=== PATIENT | male | born 1945 | race Caucasian/White ===

== ENCOUNTER → 2017-03-02 | Outpatient (CLI) | payer MEDICARE, BC | END | disposition home or self-care (01) | LOC: PCVCCLINIC 10:00 | PROVIDERS: ATTEND Internal Medicine Cardiovascular Disease | DX: E78.5 Hyperlipidemia, unspecified (principal); I25.10 Atherosclerotic heart disease of native coronary artery without angina pectoris; J44.9 Chronic obstructive pulmonary disease, unspecified; I10 Essential (primary) hypertension; I73.9 Peripheral vascular disease, unspecified; I71.9 Aortic aneurysm of unspecified site, without rupture; Z72.0 Tobacco use | CPT/HCPCS: 80061; 93005; G0463 ==

== ENCOUNTER → 2017-07-02 | Outpatient (CLI) | payer MEDICARE, BC ==
--- NOTE | 2017-07-02 22:02 | PCVCIMAG ---
EXAM: AORTOILIAC DUPLEX INDICATION: Abdominal aortic aneurysm. FINDINGS: AORTA: Suprarenal aorta measures maximum diameter of 3.0 cm. There is not a fusiform infrarenal aortic aneurysm. The infrarenal aorta measures maximum diameter of 2.8 cm. No aortic stenosis. RIGHT COMMON ILIAC ARTERY: Maximum diameter is 1.0 cm. No significant stenosis. RIGHT EXTERNAL ILIAC ARTERY: No significant stenosis. LEFT COMMON ILIAC ARTERY: Maximum diameter is 1.0 cm. No significant stenosis. LEFT EXTERNAL ILIAC ARTERY: No significant stenosis. IMPRESSION: No abdominal aortic aneurysm. No aortoiliac stenosis seen. Note is made of ectasia of the infrarenal abdominal aorta measuring up to 2.8 cm. LOC:OFFICE
--- NOTE | 2017-07-02 22:06 | PCVCIMAG ---
EXAM: BILATERAL LOWER EXTREMITY ARTERIAL DUPLEX INDICATION: Peripheral Arterial Disease. Leg pain. Popliteal artery aneurysm. FINDINGS: Right Leg: Satisfactory arterial waveforms throughout the common/profunda/superficial femoral, popliteal, anterior tibial, peroneal, and posterior tibial arteries. No flow limiting stenosis seen. Previous stent in the right popliteal artery maintaining good patency. Left Leg: Satisfactory arterial waveforms at the common and profunda femoral as well as the superficial femoral and popliteal arteries. Occlusion throughout the mid and distal anterior tibial artery. The peroneal artery and posterior tibial arteries are patent. Incidental note is made of a fusiform aneurysm throughout the popliteal artery measuring maximum outer diameter 1.8 x 2.1 cm. Previous stent distal superficial femoral artery maintaining satisfactory patency. IMPRESSION: No flow limiting stenosis in the right lower extremity. Previous right popliteal artery stent maintaining good patency. 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 Previous distal left superficial femoral artery stent maintaining good patency. Occlusion of the mid/distal left anterior tibial artery. LOC:OFFICE
== END | disposition home or self-care (01) ==
LOC: PCVCIMAG 07:56
PROVIDERS: ATTEND Internal Medicine Cardiovascular Disease
DX: I73.9 Peripheral vascular disease, unspecified (principal); I77.1 Stricture of artery; I71.4 Abdominal aortic aneurysm, without rupture; I10 Essential (primary) hypertension; E78.00 Pure hypercholesterolemia, unspecified; I25.10 Atherosclerotic heart disease of native coronary artery without angina pectoris; Z95.828 Presence of other vascular implants and grafts
CPT/HCPCS: 93925; 93978

== ENCOUNTER → 2017-07-18 | Outpatient (CLI) | payer MEDICARE, BC ==
--- NOTE | 2017-07-19 12:58 | PCVCIMAG ---
APPROVED REPORT Exam: Nuclear Stress Test Indication: CAD Patient Location: Out-Patient Stress Nurse: Caprice Santacruz RN, LUCI Mortensen Tech:Rossy INOCENTE Gonzalez Ht: 5 ft 9 in Wt: 188 lbs BSA: 2.01 m2 BP: 182/91 mmHg BMI: 27.7 Rhythm: NSR Medical History Medical History: COPD, HTN, Hyperlipidemia, Smoking Medications: Amlodipine, ASA, Zetia, Quinapril, Metoprolol, Atorvastatin Allergies: No known drug allergies Previous Cardiac Procedures: PCI Pretest Chest Pain Characteristics: No chest pain Exercise History: Physically active Meds Held (24 hrs): Metoprolol NM EXAM: Myocardial Perfusion REST/STRESS Imaging Protocol: Rest Tc-99m/Stress Tc-99m 1 day Resting Data Rest SPECT myocardial perfusion imaging was performed in supine position 45 minutes following the intravenous injection of 10.3 mCi of Tc-99m Sestamibi. Time of rest injection: 929 Date: 07/18/2017 Administration Route: IV Administration Site: Right Hand Pharmacologic Stress Pharmacologic stress test was performed by injecting Regadenoson 0.4 mg IV push followed by the intravenous injection of 33 mCi of Tc-99m Sestamibi. Time of stress injection: 1129 Date: 07/18/2017 Administration Route: IV Administration Site: Right Hand Gated Stress SPECT was performed 45 minutes after stress injection. The images were gated to evaluate regional wall motion and calculate left ventricular ejection fraction. Study Quality Study: Good Study Data Post stress, the left ventricular ejection was 62%.. SSS: 2 SRS: 1 SDS: 1 TID = 1.03. Perfusion No evidence of stress induced ischemia. 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 Nuclear Conclusion No evidence of stress induced ischemia. 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 Post stress, the left ventricular ejection was 62%.. No prior study available for comparison. Interpreted by: Miky Corey MD Electronically Approved: 07/18/2017 23:13:25 Stress Test Details Stress Test: Pharmacologic stress testing performed using 0.4 mg of regadenoson per 5 mL given IV over 10 seconds. Reason for pharmacologic stress test: physical limitation. HR Resting HR: 71 bpmMax Heart Rate (APMHR): 149 bpm Max HR Achieved: 105 bpmTarget HR (85% APMHR): 126 bpm % of APMHR: 70 Recovery HR: 92 bpm BP Resting BP: 182/91 mmHg Max BP: 177/97 mmHg ECG Resting ECG: Sinus Rhythm Stress ECG: Sinus Tachycardia Recovery ECG: Sinus Rhythm Clinical Reason for Termination: Completed protocol Stress Symptoms: Dyspnea Exercise duration: 0 min 55 sec Symptoms resolved during recovery. Stress ECG Conclusion ECG: Non-ischemic <Conclusion> ECG: Non-ischemic
== END | disposition home or self-care (01) ==
LOC: PCVCIMAG 09:17
PROVIDERS: ATTEND Internal Medicine Cardiovascular Disease
DX: I25.10 Atherosclerotic heart disease of native coronary artery without angina pectoris (principal); J44.9 Chronic obstructive pulmonary disease, unspecified; I73.9 Peripheral vascular disease, unspecified; R00.0 Tachycardia, unspecified; E78.00 Pure hypercholesterolemia, unspecified; I71.4 Abdominal aortic aneurysm, without rupture; Z87.891 Personal history of nicotine dependence; Z95.1 Presence of aortocoronary bypass graft
CPT/HCPCS: 78452; 93017; A9500

== ENCOUNTER → 2018-08-23 | Outpatient (CLI) | payer MEDICARE, BC | END | disposition home or self-care (01) | LOC: PCVCCLINIC 11:49 | PROVIDERS: ATTEND Internal Medicine Cardiovascular Disease | DX: I25.10 Atherosclerotic heart disease of native coronary artery without angina pectoris (principal); I10 Essential (primary) hypertension; I73.9 Peripheral vascular disease, unspecified; I72.4 Aneurysm of artery of lower extremity; I77.9 Disorder of arteries and arterioles, unspecified; E78.5 Hyperlipidemia, unspecified; F17.210 Nicotine dependence, cigarettes, uncomplicated; F10.10 Alcohol abuse, uncomplicated; R94.31 Abnormal electrocardiogram [ECG] [EKG]; Z79.82 Long term (current) use of aspirin; Z79.899 Other long term (current) drug therapy | CPT/HCPCS: 80061; 93005; G0463 ==

== ENCOUNTER → 2018-10-16 | Outpatient (CLI) | payer MEDICARE, BC ==
--- NOTE | 2018-10-16 12:30 | PCVCIMAG ---
EXAM: BILATERAL CAROTID DUPLEX INDICATION: Carotid Occlusive Disease. FINDINGS: Doppler Measurements (centimeters per second): RIGHT: Peak CCA-58, Peak ECA-67, Diastolic ICA-24, Peak ICA-72, ICA/CCA Ratio-1.2. LEFT: Peak CCA-73, Peak ECA-82, Diastolic ICA-22, Peak ICA-51, ICA/CCA Ratio-0.7. RIGHT CAROTID: The carotid bulb has mild plaque. The proximal internal carotid artery shows <40% stenosis. The common carotid artery shows no significant stenosis. The external carotid artery shows no significant stenosis. LEFT CAROTID: The carotid bulb has mild plaque. The proximal internal carotid artery shows <40% stenosis. The common carotid artery shows no significant stenosis. The external carotid artery shows no significant stenosis. Antegrade flow in both vertebral arteries. IMPRESSION: <40% stenosis of the right internal carotid artery with mild plaque. <40% stenosis of the left internal carotid artery with mild plaque. LOC:[place] [id number]
--- NOTE | 2018-10-16 13:04 | PCVCIMAG ---
EXAM: AORTOILIAC DUPLEX INDICATION: Abdominal aortic aneurysm. FINDINGS: AORTA: Suprarenal aorta measures maximum diameter of 3.5 cm. There is a fusiform infrarenal aortic aneurysm. The infrarenal aorta measures maximum diameter of 3.1 cm. No aortic stenosis. RIGHT COMMON ILIAC ARTERY: Maximum diameter is 1.3 cm. No significant stenosis. RIGHT EXTERNAL ILIAC ARTERY: No significant stenosis. LEFT COMMON ILIAC ARTERY: Maximum diameter is 1.2 cm. No significant stenosis. LEFT EXTERNAL ILIAC ARTERY: No significant stenosis. IMPRESSION: 3.1 cm infrarenal abdominal aortic aneurysm has developed since June 2017 study when maximum diameter was 2.8 cm. LOC:[id number]
--- NOTE | 2018-10-16 13:11 | PCVCIMAG ---
EXAM: BILATERAL LOWER EXTREMITY ARTERIAL DUPLEX INDICATION: Peripheral Arterial Disease. Leg pain. FINDINGS: Right Leg: Satisfactory arterial waveforms throughout the common/profunda/superficial femoral, popliteal, anterior tibial, peroneal, and posterior tibial arteries. No flow limiting stenosis seen. Previous right popliteal artery stent maintaining satisfactory patency. Left Leg: Common femoral and profunda femoral arteries are patent. No flow-limiting stenosis in the superficial femoral artery popliteal artery. Previous stent mid superficial femoral artery showing only mild restenosis. Mild stenosis proximal popliteal artery. There is a fusiform aneurysm measuring maximum diameter is 1.7 x 1.8 cm in the mid popliteal artery which is unchanged. Occlusion of the mid/distal anterior tibial artery. The peroneal artery and posterior tibial arteries are patent. IMPRESSION: No flow limiting stenosis in the right lower extremity. Previous right popliteal artery stent maintaining satisfactory patency. 1.8 cm fusiform left popliteal artery aneurysm unchanged since 2017 study. Previous mid left superficial femoral artery stent maintaining satisfactory patency. Unchanged occlusion of the mid/distal left anterior tibial artery. LOC:[id number]
== END | disposition home or self-care (01) ==
LOC: PCVCIMAG 08:21
PROVIDERS: ATTEND Internal Medicine Cardiovascular Disease
DX: I65.23 Occlusion and stenosis of bilateral carotid arteries (principal); I73.9 Peripheral vascular disease, unspecified; I71.4 Abdominal aortic aneurysm, without rupture
CPT/HCPCS: 93880; 93925; 93978

== ENCOUNTER → 2018-10-23 | Outpatient (CLI) | payer MEDICARE, BC ==
--- NOTE | 2018-10-24 14:21 | PCVCIMAG ---
APPROVED REPORT Study performed: 10/23/2018 11:18:09 Exam: Stress Echocardiogram Indication: CAD , Hyperlipidemia, Hypertension, PAD Patient Location: Echo lab Stress Nurse: Brunilda Guerra RN Status: routine Ht: 5 ft 9 in HR: 83 bpm BP: 130/80 mmHg Rhythm: NSR Medical History Medical History: Hyperlipidemia, HTN, COPD, Smoking, Tobacco history (Current/Recent), PAD Procedure The patient underwent an Exercise Stress Test using the Patrick Protocol. Blood pressure, heart rate, and EKG were monitored. An Echocardiogram was performed by cmm technician in four stages in quad fashion. At peak stress, four selected images were obtained and placed side by side with resting images for comparison. Stress Test Details Stress Test: Exercise stress testing was performed using a Patrick protocol. HR Resting HR: 83 bpmMax Heart Rate (APMHR): 147 bpm Max HR Achieved: 137 bpmTarget HR (85% APMHR): 124 bpm % of APMHR: 93 Recovery HR: 90 bpm HR response to stress: Normal HR response to stress BP Resting BP: 130/80 mmHg Max BP: 174/70 mmHg Recovery BP: 138/70 mmHg BP response to stress: Normal blood pressure response to stress. ECG Resting ECG: Sinus Rhythm Stress ECG: Sinus Rhythm Recovery ECG: Sinus Rhythm Clinical Reason for Termination: Maximal effort Exercise duration: 8 min 07 sec Highest Stage Achieved: Stage 3: 3.4 mph at 14% grade. Exercise capacity: 10.10 METs Pre-Stress Echo The resting Echocardiogram showed normal left ventricular contractility with an estimated Ejection Fraction of about 55-60%. Normal wall motion in all segments on baseline images. Post-Stress Echo The stress Echocardiogram showed normal left ventricular contractility with an estimated Ejection Fraction of about 60-65%. Normal augmentation of wall motion in all segments on post stress images. Clinical No clinical or ECG evidence for ischemia. Conclusion Clinical Response: Non-ischemic Exercise Capacity: Average Stress ECG Response: Non-ischemic Stress Echo Images: Non-ischemic The left ventricle is normal in size and wall thickness in both the rest and stress images. Other Information Study Quality: Good <Conclusion> The left ventricle is normal in size and wall thickness in both the rest and stress images.
== END | disposition home or self-care (01) ==
LOC: PCVCIMAG 13:00
PROVIDERS: ATTEND Internal Medicine Cardiovascular Disease
DX: I25.10 Atherosclerotic heart disease of native coronary artery without angina pectoris (principal); I10 Essential (primary) hypertension; E78.5 Hyperlipidemia, unspecified; I73.9 Peripheral vascular disease, unspecified; J44.9 Chronic obstructive pulmonary disease, unspecified; Z87.891 Personal history of nicotine dependence
CPT/HCPCS: 93325; 93351

== ENCOUNTER → 2019-06-16 | Outpatient (CLI) | payer MEDICARE, BC | END | disposition home or self-care (01) | LOC: PCVCCLINIC 10:00 | PROVIDERS: ATTEND Internal Medicine Cardiovascular Disease | DX: I25.10 Atherosclerotic heart disease of native coronary artery without angina pectoris (principal); I71.4 Abdominal aortic aneurysm, without rupture; I73.9 Peripheral vascular disease, unspecified; E78.00 Pure hypercholesterolemia, unspecified; I10 Essential (primary) hypertension; J44.9 Chronic obstructive pulmonary disease, unspecified; Z72.0 Tobacco use; E78.5 Hyperlipidemia, unspecified | CPT/HCPCS: 36415; 80061; 93005; G0463 ==